=== PATIENT | male | born 1970 ===

== ENCOUNTER 2018-06-27 14:07 | Emergency (ER) | payer OTHER ==
[2018-06-27] MEDS ORDERED: ACETAMINOPHEN-CODEINE 300/30MG TAB ONE (14:47)
== END 2018-06-27 15:08 | disposition home or self-care (01) ==
LOC: EDH 14:07
DX: S76.192A Other specified injury of left quadriceps muscle, fascia and tendon, initial encounter (principal); Z98.890 Other specified postprocedural states; X58.XXXA Exposure to other specified factors, initial encounter; Y93.73 Activity, racquet and hand sports; Y92.312 Tennis court as the place of occurrence of the external cause; Y99.8 Other external cause status
CPT/HCPCS: 29505; 73562